=== PATIENT | male | born 1985 | race Caucasian/White ===

== ENCOUNTER 2022-05-08 22:15 | Emergency (ER) | payer SELFPAY ==
[~2022-05-08] VITALS: Ht 177.8 cm; Wt 125.9 kg
[2022-05-08] MEDS ORDERED: BUPRENORPHINE HY8 MG SL (22:47)
[2022-05-08 23:47] LABS: BASO % 0.6 % (0.0-1.0); HEMATOCRIT 38.2 % (42.0-52.0); LYMPH # 0.8 10*3/uL (1.3-4.4); LYMPH % 16.9 % (27.0-41.0); MEAN CELL VOLUME 84.3 fl (80.0-94.0); MEAN CORPUSCULAR HGB 29.4 pg (27.0-31.0); MEAN CORPUSCULAR HGB CONC 34.8 g/dl (33.0-37.0); MEAN PLATELET VOLUME 9.1 fl (9.6-12.3); MONO # 0.7 10*3/uL (0.1-1.0); MONO % 13.9 % (3.0-9.0); NEUT # 3.2 10*3/uL (2.3-7.9); NEUT % 68.4 % (47.0-73.0); PLATELET COUNT AUTOMATED 275 10*3/uL (130-400); RED BLOOD COUNT 4.53 10*6/uL (4.50-5.90); RED CELL DISTRI WIDTH 12.4 % (0-14.5); WHITE BLOOD COUNT 4.7 10*3/uL (4.8-10.8)
[2022-05-09] LABS: ACT PARTIAL THROMBO TIME 32.2 SECONDS (20.0-32.1); INTERNATIONAL NORM RATIO 1.1 (2.0-3.5)
[2022-05-09 00:05] LABS: ALKALINE PHOSPHATASE 88 U/L (45-117); BUN 16 mg/dl (7-24); CHLORIDE 105 mmol/L (98-107); CREATININE 0.97 mg/dL (0.70-1.30); LIPASE 49 U/L (73-393); POTASSIUM 3.5 mmol/L (3.5-5.1); SGOT/AST 24 IU/L (3-35); SGPT/ALT 34 U/L (12-78); SODIUM 138 mmol/L (136-145); TOTAL PROTEIN 6.7 gm/dL (6.4-8.2)
[2022-05-09] MEDS ORDERED: ONDANSETRON4 MG SL (01:32)
== END 2022-05-09 02:00 | disposition home or self-care (01) ==
LOC: ED 22:15
PROVIDERS: Family Medicine
DX: U07.1 COVID-19 (principal); B34.9 Viral infection, unspecified; F17.200 Nicotine dependence, unspecified, uncomplicated

== ENCOUNTER 2023-01-19 16:28 | Emergency (ER) | payer SELFPAY ==
[~2023-01-19 16:28] MED LIST: BUPRENORPHINE HY8 MG SL; ONDANSETRON4 MG SL
== END 2023-01-19 17:05 | disposition left against medical advice (07) ==
LOC: ED 16:28
DX: R14.0 Abdominal distension (gaseous) (principal); Z53.21 Procedure and treatment not carried out due to patient leaving prior to being seen by health care provider

== ENCOUNTER 2023-07-10 10:49 | Emergency (ER) | payer SELFPAY ==
[~2023-07-10] VITALS: Ht 175.2 cm; Wt 117.9 kg
[2023-07-10 11:31] LABS: BASO # 0.1 10*3/uL (0.0-0.1); BASO % 0.9 % (0.0-1.0); EOS # 0.1 10*3/uL (0.0-0.4); EOS % 1.7 % (1.0-4.0); HEMATOCRIT 39.5 % (42.0-52.0); LYMPH # 1.2 10*3/uL (1.3-4.4); LYMPH % 22.4 % (27.0-41.0); MEAN CELL VOLUME 86.1 fl (80.0-94.0); MEAN CORPUSCULAR HGB 29.2 pg (27.0-31.0); MEAN CORPUSCULAR HGB CONC 33.9 g/dl (33.0-37.0); MEAN PLATELET VOLUME 8.9 fl (9.6-12.3); MONO # 0.4 10*3/uL (0.1-1.0); MONO % 6.7 % (3.0-9.0); NEUT # 3.7 10*3/uL (2.3-7.9); NEUT % 68.1 % (47.0-73.0); PLATELET COUNT AUTOMATED 382 10*3/uL (130-400); RED BLOOD COUNT 4.59 10*6/uL (4.50-5.90); RED CELL DISTRI WIDTH 12.3 % (0-14.5); WHITE BLOOD COUNT 5.4 10*3/uL (4.8-10.8)
[2023-07-10 11:53] LABS: ALKALINE PHOSPHATASE 96 U/L (46-116); BUN 11 mg/dl (9-23); CHLORIDE 106 mmol/L (98-107); LIPASE 23 U/L (12-53); POTASSIUM 4.1 mmol/L (3.4-5.1); SGPT/ALT 22 U/L (5-49); TOTAL PROTEIN 6.7 gm/dL (6.0-8.0)
[2023-07-10] MEDS ORDERED: ONDANSETRON4 MG SL (12:07)
== END 2023-07-10 12:23 | disposition home or self-care (01) ==
LOC: ED 10:49
PROVIDERS: Nurse Practitioner Family
DX: K52.9 Noninfective gastroenteritis and colitis, unspecified (principal); K40.90 Unilateral inguinal hernia, without obstruction or gangrene, not specified as recurrent